=== PATIENT | female | born 2000 | race American Indian/Alaskan Native ===

== ENCOUNTER 2020-10-13 20:48 | Emergency (ER) | payer MEDICAID, OTHER ==
[2020-10-13 21:26] VITALS: BP 137/72
--- NOTE | 2020-10-13 21:42 | Emergency Department Report ---
ED General Adult HPI - General Chief complaint: Laceration/Recheck/Suture Stated complaint: REMOVAL OF STITCHES Time Seen by Provider: 10/13/20 21:26 Source: patient Mode of arrival: Ambulatory Limitations: No Limitations - History of Present Illness Initial comments: 19-year-old -[place] female patient presents for suture removal. Patient states her stitches were placed in [place] after having a surgery for a Chiari malformation 2 weeks ago. Patient states she is currently on cephalexin for antibiotic prophylaxis. She states intermittent headaches since the surgery, but denies any current headache, fever/chills/sweats, or difficulty moving her neck. She denies any new wound drainage or redness - Related Data Home Medications Medication Instructions Recorded Confirmed Last Taken No Known Home Medications [No 08/12/15 08/12/15 Unknown Reported Home Medications] Allergies Allergy/AdvReac Type Severity Reaction Status Date / Time No Known Allergies Allergy Verified 08/12/15 09:45 ED Review of Systems ROS: Stated complaint: REMOVAL OF STITCHES Other details as noted in HPI Constitutional: denies: chills, diaphoresis, fever, malaise, weakness Respiratory: denies: cough Cardiovascular: denies: chest pain Gastrointestinal: denies: nausea, vomiting Musculoskeletal: denies: arthralgia Skin: denies: change in color, pruritus Neurological: as per HPI. denies: numbness, abnormal gait Hematological/Lymphatic: denies: swollen glands ED Past Medical Hx - Surgical History Additional Surgical History: Chiari malformation - Social History Smoking Status: Never Smoker - Medications Home Medications: Home Medications Medication Instructions Recorded Confirmed Last Taken Type No Known Home Medications [No 08/12/15 08/12/15 Unknown History Reported Home Medications] ED Physical Exam - General Limitations: No Limitations General appearance: alert, in no apparent distress - Head Head exam: Present: atraumatic, normocephalic - Eye Eye exam: Present: normal appearance - Neck Neck exam: Present: full ROM, other (18 vertical mattress sutures noted overlying cervical spine and posterior scalp without surrounding erythema, induration, drainage, or tenderness to palpation). Absent: tenderness, meningismus - Respiratory Respiratory exam: Present: normal lung sounds bilaterally. Absent: respiratory distress - Cardiovascular Cardiovascular Exam: Present: regular rate, normal rhythm - Neurological Exam Neurological exam: Present: alert, oriented X3, normal gait - Psychiatric Psychiatric exam: Present: normal affect, normal mood - Skin Skin exam: Present: warm, dry, intact, normal color. Absent: rash ED Course Vital Signs 10/13/20 21:25 Temperature 99.8 F H Pulse Rate 105 H Respiratory 18 Rate Blood Pressure 137/72 O2 Sat by Pulse 98 Oximetry - Procedure Description Procedures done: 18 vertical mattress sutures removed; patient tolerated procedure well without any immediate complications; no wound dehiscence or bleeding noted; no wound drainage noted ED Medical Decision Making - Medical Decision Making 19-year-old -[place] female patient presents for suture removal. Patient states her stitches were placed in [place] after having a surgery for a Chiari malformation 2 weeks ago. Patient states she is currently on cephalexin for antibiotic prophylaxis. She states intermittent headaches since the surgery, but denies any current headache, fever/chills/sweats, or difficulty moving her neck. She denies any new wound drainage or redness 18 sutures removed without complication. Patient tolerated procedure well. Repeat vitals shows heart rate of 96 with a temp of 98.7. Patient denies any fatigue, weakness, sweats/chills, vision changes, or worst headache of her life. Recommend follow-up with primary care provider and surgeon as scheduled. Discussed signs and symptoms in detail that should prompt immediate return to the emergency department with patient who verbalizes understanding. She is well-appearing and stable for discharge home. Critical care attestation.: If time is entered above; I have spent that time in minutes in the direct care of this critically ill patient, excluding procedure time. ED Disposition Clinical Impression: Visit for suture removal Disposition: DC-01 TO HOME OR SELFCARE Is pt being admited?: No Condition: Stable Instructions: Wound Closure Removal, Care After Referrals: PRIMARY CARE, [Primary Care Provider] - 3-5 Days
== END 2020-10-13 22:05 | disposition home or self-care (01) ==
LOC: ED 20:48
DX: T14.8XXA Other injury of unspecified body region, initial encounter (principal); Z48.02 Encounter for removal of sutures; Z79.899 Other long term (current) drug therapy; X58.XXXA Exposure to other specified factors, initial encounter; Y93.89 Activity, other specified; Y92.89 Other specified places as the place of occurrence of the external cause; Y99.8 Other external cause status

== ENCOUNTER 2020-12-09 20:57 | Emergency (ER) | payer OTHER | END 2020-12-09 23:04 | disposition left against medical advice (07) | LOC: ED 20:57 | DX: J02.9 Acute pharyngitis, unspecified (principal); Z53.21 Procedure and treatment not carried out due to patient leaving prior to being seen by health care provider ==